=== PATIENT | female | born 1930 | race Caucasian/White ===

== ENCOUNTER → 2016-09-29 | Outpatient (CLI) | payer OTHER ==
[~2016-09-29] MED LIST: ACETAMINOPHEN325 M1 PO; AMLODIPINE BESYL5 MG PO; APAP500 PO; ASPIRIN EC81 M1 PO; AUGMENTIN 875875 MG PO; CLONAZEPAM 0.50.5 M1 PO; GLUCOSAMINE HC500 MG PO; HALDOL DECAN50 MG/M1 IM; HALOPERIDOL INJECTION; IRON PO; IRON325 PO; LOPRESSOR 50 MG50 M1 PO; METOPROLOL SUCC25 M1 PO; METOPROLOL TARTRATE PO; OMEPRAZOLE 20 M20 M1 PO; PRAVACHOL 20 MG20 M1 PO; PROTONIX40 M2 PO; ULTRAM 50MG TAB50 MG PO; VITAMIN B-12500 MCG PO; VITAMIN D31000 UNI2 PO; VITAMINC500 PO
== END ==
LOC: RAD 15:05
DX: R05 Cough (principal)

== ENCOUNTER → 2017-04-25 | Outpatient (CLI) | payer OTHER ==
[~2017-04-25] MED LIST changes: +CARDIZEM CD120 MG PO; +FUROSEMIDE 20 M20 M1 PO; +GAVILAX8.5 GM PO; +HYDROCHLOROTH12.5 M2 PO; +PAXIL10 MG PO; +TUSSIN15 MG/5 ML PO; +VESICARE10 M1 PO; +ZANTAC 150MG T150 MG PO
== END ==
LOC: RAD 12:34
DX: I51.7 Cardiomegaly (principal); R09.89 Other specified symptoms and signs involving the circulatory and respiratory systems